=== PATIENT | male | born 1960 | race Caucasian/White ===

== ENCOUNTER 2021-12-17 14:57 | Outpatient (CLI) | payer SELFPAY ==
[2021-12-17 17:06] LABS: Basophils # 0.1 10^3/uL (0.0-0.1); Basophils % 1.2 %; Eosinophils # 0.5 10^3/uL (0.0-0.8); Eosinophils % 5.4 %; Hematocrit 43.6 % (42.0-52.0); Hemoglobin 14.2 g/dL (11.7-16.6); Mean Corpuscular HGB Conc 32.6 g/dL (30.0-36.0); Mean Corpuscular Volume 92.2 fl (80-94); Mean Platelet Volume 9.2 fL (7.4-10.4); Monocytes # 0.7 10^3/uL (0.2-0.9); Monocytes % 7.2 %; Neutrophils # 6.09 10^3/uL (1.8-7.7); Neutrophils % 64.8 %; Nucleated Red Blood Cells % 0 %; Platelet Count 1011 10^3/cmm (130-400); Red Blood Count 4.73 10^6/uL (4.1-5.3); Red Cell Distribution Width 13.3 % (12.1-15.1); White Blood Count 9.4 10^3/uL (4.0-10.0)
[2021-12-17 17:13] LABS: LAB Peripheral Smear Sent for Review
[2021-12-17 18:37] LABS: Alanine Aminotransferase 21 U/L (0-41); Albumin Level 4.4 g/dL (3.5-5.2); Alkaline Phosphatase 77 IU/L (40-130); Anion Gap 16.3 (5-19); Aspartate Amino Transferase 32 U/L (0-40); Blood Urea Nitrogen 23 mg/dL (8-23); Carbon Dioxide 24 mmol/L (22-29); Chloride 104 mmol/L (98-107); Glomerular Filtration Rate 68.3 mL/min (90-130); Glucose 85 mg/dL (65-115); Iron 92 ug/dL (59-158); Lactate Dehydrogenase 267 U/L (135-225); Osmolality Calculated 293 mOsm/kg (285-295); Percent Saturation 32.9 % (20-50); Potassium 4.3 mmol/L (3.5-5.1); Sodium 140 mmol/L (136-145); Total Bilirubin 0.4 mg/dL (0.15-1.2); Total Iron Binding Capacity 279 mcg/dl; Total Protein 7.4 g/dL (6.6-8.7); Unsaturated Iron Binding 187 ug/dL (112-347); Uric Acid 7.1 mg/dL (3.4-7.0)
--- NOTE | 2021-12-17 18:41 | ONC CON_ITS ---
Dr. North New Patient Note Patient: Vince Colon Unit #: [id number]: 1960 Dicatated By: Phill North M.D.Date of Visit: Dec 17, 2021 Onc MED New Patient/Consult Referring Physician: Alfa Villegas Chief Complaint: Thrombocytosis. History of Present Illness: This is a 61-year-old man with a significantly elevated platelet count. He has been in good general health. On 11/26/2021 he was diagnosed with COVID-19 virus infection. His symptoms began on 11/16/2021 and included sore throat, bad headache, and severe fatigue. He was not having fever, cough, or difficulty breathing. His laboratory studies at that time included CBC which showed normal hemoglobin at 15.6 g with hematocrit 47.1%. The white blood cell count was 9100. The platelet count was significantly elevated at 1,359,000. Comprehensive metabolic profile showed normal renal function with BUN 18 and creatinine 0.96 mg/dL. Bilirubin was normal at 0.4 mg/dL. The SGPT was mildly elevated at 59/16 U/L. The SGOT and alkaline phosphatase were normal. His repeat CBC on 12/04/2021 showed similar results with hemoglobin 14.3 g, white blood cell count 10,400, and platelet count 1,394,000. With those findings, he was recommended to begin aspirin prophylaxis. He is seen now for further evaluation. He had significant fatigue following the COVID-19 virus infection, but he says his energy is good today, and he is pretty much back to normal activity. ECOG score is 0. He has good appetite and his weight has been stable. He has no fever or night sweats. He currently is not having sore throat and he has had no difficulty swallowing. He does not complain of cough, and he has not been having shortness of breath or chest pain. He has no GI/ complaints other than some urinary frequency and nocturia. His joints are occasionally stiff and sore. He otherwise does not have joint or bone pain. His headaches are better, though he still feels like he has a little brain fog . He has no focal neurologic symptoms. He has not had any abnormal bruising or bleeding. Past Medical History: He has a history of COVID-19 virus infection diagnosed in November 2021. He has had no ongoing medical illnesses. Past Surgical History: His surgical/procedural history includes bilateral inguinal hernia repair in 1991 and tonsillectomy in 1962. Medications: Aspirin 1 Tablet (of 81 mg) Tablet, enteric coated Oral daily Allergies: No Known Allergies. Social History: Mr. Colon is . 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 He smoked as a teenager. He quit at age 19. He had heavy alcohol use beginning at age 17. He quit drinking at age 27. Family History: Father of heart attack at age 59. Mother is still living at age 86. She has had a stroke. He has 2 brothers, ages 57 and 62. Both have had heart attacks. He has 2 daughters, one of whom has diabetes. Review Of Symptoms: Constitutional - He has been fatigued following the COVID-19 virus infection, but his energy is good today. He is back to normal activity. His appetite is good and his weight is stable. He has no fever or night sweats. ECOG score 0, Eyes - No change in vision, ENMT - He has hearing loss and tinnitus. No sinus congestion/drainage. No mouth sores. No sore throat or difficulty swallowing, Hematologic/Lymphatic - No abnormal bruising or bleeding, Respiratory - No shortness of breath. No cough. No pleuritic pain or hemoptysis, Cardiovascular - No angina pain. No palpitations, Gastrointestinal - No nausea or vomiting. No heartburn or acid reflux. No diarrhea or constipation. No blood in the stool or black stools, Genitourinary (M) - No dysuria or hematuria. He has urinary frequency and nocturia. No urgency or incontinence, Musculoskeletal - He occasionally gets stiff and sore. He otherwise has no joint or bone pain, Integumentary - No skin rash or other skin changes, Neurologic - He was having headaches, but now mostly resolved. He still feels a little brain fog . No numbness or tingling. No other focal neurologic symptoms, Psychiatric - He has a little anxiety. No depression. No insomnia. Vital Signs: Performed on Dec 17, 2021 16:13: 0, 0, 34.33 (HIGH), 2.10 sq.m, 67 in, 98 %, 60 /min, 16 /min, 156/83 mm(hg) (HIGH), 98.1 F (LOW), and 219.2 lbs (HIGH). Physical Examination: Constitutional - He appears to be in good general health, Eyes - Sclerae nonicteric. Conjunctivae clear, ENMT - No lesions noted in the oral cavity, Neck - No mass or thyromegaly, Hematologic/Lymphatic - No cervical, clavicular, or axillary adenopathy, Respiratory - Lungs sound clear with good air movement bilaterally, Cardiovascular - Heart rhythm is regular. There is no murmur, gallop, or rub noted, Abdomen - Soft and non-tender. Liver and spleen are not enlarged. There is no abdominal mass or ascites noted and there is no inguinal adenopathy, Back/Spine - No spine or CVA tenderness noted, Extremities - No edema. Pedal pulses are palpable bilaterally, Integumentary - No rashes. No suspicious skin lesions noted, Neurologic - No focal neurologic deficits noted. Problem List: 1. Thrombocytosis. Etiology is uncertain. While this could be reactive in association with his recent COVID-19 virus infection, the degree of elevation is very suggestive of essential thrombocythemia. 2. History of COVID-19 virus infection diagnosed on 11/26/2021 but symptomatic beginning 11/16/2021. Problems Addressed with this Encounter and Plan: Patient with a significantly elevated platelet count. While this could be reactive in association with recent COVID-19 virus infection, the degree of elevation is strongly suggestive of essential thrombocythemia. The laboratory findings and clinical implications were reviewed with the patient and his daughter. He will have additional laboratory studies today to include CBC, comprehensive metabolic profile, LDH level, serum iron studies, and uric acid level. I will review the blood smear, and I also will request a molecular profile for myeloproliferative neoplasms. He will have further evaluation as indicated. In the meantime, he is recommended to continue his aspirin prophylaxis. Signed By: Phill North M.D. <<Signature on File>>
[2022-01-10 19:57] LABS: CALR Exon 9 Mutation NOT DETECTED (NOT DETECTED); CSF3R Exon 14/17 Mutation NOT DETECTED (NOT DETECTED); JAK2 Exon 12 Mutation NOT DETECTED (NOT DETECTED); JAK2 V617 Block Specimen ID NG; JAK2 V617 Clinical Indication NG; JAK2 V617 Mutation NOT DETECTED (NOT DETECTED); JAK2 V617 Specimen Source NG; MPL Exon 12 Mutation NOT DETECTED (NOT DETECTED)
== END 2021-12-17 14:58 | disposition home or self-care (01) ==
PROVIDERS: Visit Provider Internal Medicine Medical Oncology
DX: D75.839 Thrombocytosis, unspecified (principal); Z79.82 Long term (current) use of aspirin; Z86.16 Personal history of COVID-19
CPT/HCPCS: 36415; 80053; 81219; 81270; 81339; 83540; 83550; 83615; 84550; 85025; 88374; 99204